=== PATIENT | male | born 1955 | race Two or more races ===

== ENCOUNTER 2024-07-27 13:32 | Emergency (ER) | payer MEDICARE, MEDICAID, SELFPAY ==
--- NOTE | ~2024-07-27 | XR_ITS ---
EXAMINATION: XR LUMBOSACRAL SPINE CLINICAL INFORMATION: Pain. COMPARISON: None available. TECHNIQUE: Three views of the lumbosacral spine. FINDINGS: Multilevel marginal osteophyte formation, endplate sclerosis, decreased intervertebral disc height lower thoracic and lumbar spine. Dextroconvex rotoscoliosis apex at L1-2 level. Metallic screws through the pedicles of L4 and S1. Intervertebral disc spacers at L4-5 and L5-S1 resulting in incomplete ankylosis. No acute cortical disruption. Grade 1 retrolisthesis L2-3. Calcified plaques abdominal aorta wall. XR/XR lumbar spine 2-3V IMPRESSION: Multilevel thoracolumbar spondylosis with the dextroconvex rotoscoliosis apex at L1-2. Status post posterior L4 S1 fusion. Electronically signed by: Gilberto Serrano MD 07/27/2024 03:10 PM [facility]
[2024-07-27 13:39] VITALS: BP 125/70; PULSE 62; RESP 16; TEMP 36.8; O2SAT 96; BMI 35.7
--- NOTE | 2024-07-27 13:42 | ED_ITS ---
HPI - General Adult General Chief complaint: Back Pain/Injury Stated complaint: Back pain 3 weeks Time Seen by Provider: 07/27/24 19:47 Source: patient Limitations: no limitations History of Present Illness ED Provider: Isabela Joel PA-C HPI narrative: 69-year-old male presents with right low back pain x3 weeks. Patient has very focal, nonradiating. Denies weakness of lower extremities, paresthesia, urinary retention or bowel incontinence. Patient can not recall the mechanism of injury. Pain worse with sitting and walking, it improves throughout the day. Related Data Previous Rx's ?Medication ?Instructions ?Recorded meloxicam 15 mg tablet 15 mg PO DAILY #7 tabs 07/27/24 methocarbamol 750 mg tablet 1,500 mg (2 x 750 mg) PO QID PRN 07/27/24 pain #30 tabs Allergies Allergy/AdvReac Type Severity Reaction Status Date / Time No Known Allergies Allergy Verified 07/27/24 13:41 Review of Systems Review of Systems: Yes all other systems are reviewed and are negative Constitutional: Constitutional: Denies fatigue and Denies fever(s) Musculoskeletal: Musculoskeletal: Reports back pain, Denies arthralgias, Denies joint swelling, Denies muscle weakness, Denies numbness, Denies radiating pain into limb, Reports stiffness and Denies tingling Neurologic: Denies numbness and Denies tingling Endocrine: Endocrine: Denies fatigue PMFSH Social History Social History Unable to assess alcohol history related to: Unknown Use of substances other than those prescribed or required for medical reasons: Unknown Advance Directives: No Advance Directives Information Provided: No Do you have a plan to hurt others: No Plan Physical Exam ED Vital Signs: Vital Signs - 24 hr 07/27/24 13:39 07/27/24 22:47 Temperature 98.3 F 97.6 F Pulse Rate 62 56 Respiratory Rate 16 16 Blood Pressure 125/70 148/80 H Pulse Oximetry 96 100 Oxygen Delivery Method Room Air Room Air BMI result Body Mass Index 35.7 Const Other: Alert, well-appearing Orientation/consciousness: patient oriented x3 Resp Other: Nonlabored respiration Cardio Other: Normal peripheral perfusion Back/Spine/Pelvis Other: No focal midline tenderness length of the spine, pain seems to be right-sided paraspinous distribution within the lumbar region, Skin Other: Warm dry no rash Neuro General: patient oriented x3, gait normal, no focal motor deficits and CN's II- XI intact bilaterally Psych Other: Calm cooperative Course Course Course Narrative: This is a rapid medical exam performed by Odalys Bell NP: Additional HPI, ROS, PE not included below will be deferred to primary provider. Patient is a 69-year-old male presenting with complaint of right lower back pain for the past 3 weeks, hx of surgery in 2004 due to work related injury. Denies saddle anesthesia or bowel/bladder incontinence. Plan: lumbar xray Medications Administered Discontinued Medications Generic Name Dose Route Start Last Admin Trade Name Freq PRN Reason Stop Dose Admin Ketorolac Tromethamine 30 mg 07/27/24 21:48 07/27/24 21:59 Ketorolac Tromethamine 30 Mg/Ml Vial IM 07/27/24 21:49 30 mg ONCE ONE Administration Methocarbamol 1,500 mg 07/27/24 21:48 07/27/24 21:58 Methocarbamol 750 Mg Tablet PO 07/27/24 21:49 1,500 mg ONCE ONE Administration Medical Decision Making Medical Decision Making [facility] Narrative: 69-year-old male presents with right low back pain x3 weeks. Patient has very focal, nonradiating. Denies weakness of lower extremities, paresthesia, urinary retention or bowel incontinence. Patient can not recall the mechanism of injury. Pain worse with sitting and walking, it improves throughout the day. No relevant chronic issues History per patient: I have considered the following differential diagnoses: Disc herniation, lumbar radiculopathy, sciatica, cauda equina, epidural abscess , compression fracture Plan: X-rays were obtained from triage, he has arthritic changes. Patient not having any radicular symptoms and he has no red flag signs symptoms for cord compression. Hence this is also likely not a disc herniation. Doubtful to be epidural abscess, he has no risk factors, he has had symptoms for 3 weeks, and again no neuro deficits. We will send with anti-inflammatory and a muscle relaxant. I have independently reviewed the following tests: X-ray lumbar spine: XR/XR lumbar spine 2-3V IMPRESSION: Multilevel thoracolumbar spondylosis with the dextroconvex rotoscoliosis apex at L1-2. Status post posterior L4 S1 fusion. Electronically signed by: Gilberto Serrano MD 07/27/2024 03:10 PM [facility] Discharge Plan Discharge Clinical Impression: Arthritis, lumbar spine Patient Disposition: Home, Self-Care Instructions: Osteoarthritis (ED) Additional Instructions: You were found to have arthritis in your lower back, this is the cause of your pain. See home care instructions. Use the meloxicam as directed, this is an anti-inflammatory. Use the methocarbamol, this is a muscle relaxant, as needed for pain. To know it will cause drowsiness, do not drive or operate machinery while taking the medication. Follow up with your primary care provider. Prescriptions: New meloxicam 15 mg tablet 15 mg PO DAILY Qty: 7 0RF methocarbamol 750 mg tablet 1,500 mg PO QID PRN (Reason: pain) Qty: 30 0RF Print Language: Czech
[2024-07-27] MEDS: methocarbamoL 750 MG TABLET 1500 MG PO (21:58)
[2024-07-27] MEDS: Ketorolac Tromethamine 30 MG/ML VIAL IM (21:59)
[2024-07-27 22:47] VITALS: BP 148/80; PULSE 56; RESP 16; TEMP 36.4; O2SAT 100
[2024-07-27 23:45] VITALS: BP 148/80; PULSE 56; RESP 16; TEMP 36.4; O2SAT 100
== END 2024-07-27 23:46 | disposition home or self-care (01) ==
PROVIDERS: Emergency Provider Emergency Medicine Emergency Medical Services
DX: M47.896 Other spondylosis, lumbar region (principal)
CPT/HCPCS: 72100; 96372; 99284; J1885

== ENCOUNTER → 2024-07-27 13:43 | Outpatient (BNV) | payer SELFPAY | PROVIDERS: Visit Provider Radiology Diagnostic Radiology | DX: M47.815 Spondylosis without myelopathy or radiculopathy, thoracolumbar region (principal); M43.27 Fusion of spine, lumbosacral region | CPT/HCPCS: 72100 ==